=== PATIENT | female | born 1995 | race Hispanic/Latino ===

== ENCOUNTER 2022-07-27 14:14 | Emergency (ER) | payer OTHER ==
[2022-07-27 14:52] LABS: Pregnancy Test - Urine (BHCG) POSITIVE (Negative); Pregu Control Background? CLEAR/WHITE (CLR/WHITE); Pregu Control Bar Appear? YES (CONTROL BAR)
== END 2022-07-27 15:00 | disposition home or self-care (01) ==
LOC: CSHERS 14:14
DX: O21.9 Vomiting of pregnancy, unspecified (principal); O99.519 Diseases of the respiratory system complicating pregnancy, unspecified trimester; J45.909 Unspecified asthma, uncomplicated; O10.919 Unspecified pre-existing hypertension complicating pregnancy, unspecified trimester; O24.119 Pre-existing type 2 diabetes mellitus, in pregnancy, unspecified trimester; O99.330 Smoking (tobacco) complicating pregnancy, unspecified trimester; F17.210 Nicotine dependence, cigarettes, uncomplicated; Z3A.00 Weeks of gestation of pregnancy not specified
CPT/HCPCS: 81025; 99284

== ENCOUNTER 2022-11-10 18:46 | Inpatient (IN) | payer OTHER ==
[2022-11-10 19:52] LABS: Fetal Membranes Rupture RUPTURE DETECTED (No Rupture)
[2022-11-10] MEDS ORDERED: hydrALAZINE 20 MG/ML VIAL SLOW IVP PRN ×3 (19:59→21:13)
[2022-11-10 20:09] VITALS: BMI 41.1
[2022-11-10] MEDS ORDERED: Butorphanol Tartrate 1 MG/ML VIAL SLOW IVP PRN (20:11)
[2022-11-10] MEDS ORDERED: Carboprost 250 MCG/ML AMP IM PRN (20:11)
[2022-11-10] MEDS ORDERED: Ondansetron PF 4 MG/2 ML Vial IVP PRN (20:11)
[2022-11-10] MEDS ORDERED: Tranexamic Acid 1,000 MG/10 ML VIAL IVP PRN (20:11)
[2022-11-10] MEDS ORDERED: Docusate 100 MG CAP PO PRN (20:11)
[2022-11-10] MEDS ORDERED: Diphenoxylate HCl/Atropine Tablet PO PRN (20:11)
[2022-11-10] MEDS ORDERED: Misoprostol 200 MCG TAB PR PRN (20:11)
[2022-11-10] MEDS ORDERED: NS w/ Oxytocin 30 units 500 ML IV SCH (20:15)
[2022-11-10 20:21] LABS: FFN Internal QC Analyzer PASS (PASS); FFN Internal QC Cassette PASS (PASS); Fetal Fibronectin POSITIVE (Negative)
[2022-11-10] MEDS ORDERED: Calcium Gluc 4.6 MEQ/10 ML (100 MG/ML) SLOW IVP PRN ×2 (20:26→20:28)
[2022-11-10] MEDS ORDERED: Lorazepam 2 MG/ML VIAL SLOW IVP PRN (20:28)
[2022-11-10] MEDS ORDERED: Azithromycin 250 MG TAB PO SCH (20:30)
[2022-11-10] MEDS ORDERED: Dextrose 5% in Water 1,000 ML IV PRN (21:10)
[2022-11-10] MEDS ORDERED: Dextrose 50% Abboject 50 ML SYRINGE SLOW IVP PRN (21:10)
[2022-11-10] MEDS ORDERED: Milk Of Magnesia 30 ML UDCUP PO PRN (21:13)
[2022-11-10] MEDS ORDERED: Boostrix 0.5 ML (Tdap) VIAL (>/=7 yrs of age) IM ONE (21:13)
[2022-11-10] MEDS ORDERED: Bisacodyl 10 MG SUPP PR PRN (21:13)
[2022-11-10] MEDS ORDERED: Magnesium Sulfate 20 GM/WATER 500 ML BAG IVPB SCH (21:15)
[2022-11-10] MEDS ORDERED: Magnesium Sulfate 20 gm/500 ml 20 GM/500 ML BAG ONE (21:23)
[2022-11-10 21:25] LABS: #Eosinphils 0.1 10x3/uL (0.0-0.5); #Monocytes 0.7 10x3/uL (0.0-1.1); #Neutrophils 11.5 10x3/uL (1.5-8.4); %Basophils 0.2 % (0.0-2.0); %Eosinophils 0.6 % (0.0-6.0); %Lymphocytes 21.4 % (18.0-47.0); %Monocytes 4.2 % (0.0-10.0); %Neutrophils 73.1 % (40.0-75.0); Hemoglobin 11.7 g/dL (12.0-15.5); Mean Corpuscular HGB CONC 33.8 g/dL (32.0-36.0); Mean Corpuscular Hemoglobin 27.8 pg (27.0-33.0); Mean Corpuscular Volume 82.2 fl (81.6-98.3); Mean Platelet Volume 10.2 fl (7.4-10.4); Platelet Count 343 10x3/uL (150-450); RBC Distribution Width 12.6 % (11.5-14.5); Red Blood Cell (RBC) Count 4.21 10x6/uL (3.90-5.03); White Blood Cell (WBC) Count 15.7 10x3/uL (3.5-10.5)
[2022-11-10] MEDS ORDERED: Lantus 1000 UNITS/10 ML VIAL SC SCH (21:30)
[2022-11-10 21:35] LABS: ALT (SGPT) 6 U/L (8-55); AST (SGOT) 8 U/L (5-34); Alkaline Phosphatase 141 U/L (40-110); Anion Gap 14 mmol/L (10-20); BUN (Urea Nitrogen) 7 mg/dL (7.0-18.7); Bilirubin, Total 0.3 mg/dL (0.2-1.2); Calc. Creatinine Clearance 229 mL/min (70-130); Calcium 8.6 mg/dL (7.8-10.44); Carbon Dioxide 22 mmol/L (22-29); Chloride 103 mmol/L (98-107); Estimated GFR 122; Globulin 3.3 g/dL (2.4-3.5); Glucose 142 mg/dL (70-105); Potassium 3.7 mmol/L (3.5-5.1); Protein, Total 6.3 g/dL (6.0-8.3); Sodium 135 mmol/L (136-145)
[2022-11-10] MEDS: Betamet Acet/Betamet Na Ph 30 MG/5 ML VIAL IM SCH (21:38)
[2022-11-10] MEDS: Lactated Ringer's 1,000 ML IV SCH (21:38)
[2022-11-10 21:57] LABS: HBSAg Index 0.12 S/CO (0-0.99); Hep B Surf Ag - L&D Non-Reactive S/CO (NonReactive); Syphilis Antibody Nonreactive (Nonreactive); Syphilis Antibody Index 0.04 S/CO (<1.00 Non-Reactive)
[2022-11-10 23:39] LABS: Bilirubin Neg (Negative); Blood, Urine Negative (Negative); Clarity Slightly Cloudy (Clear); Glucose, Urine (Dipstick) Normal (Negative); Ketone, Urine 15 mg/dL (Negative); Leukocyte Negative (Negative); Nitrite Negative (Negative); Protein, Urine (Dipstick) Negative (Neg-Trace); Urobilinogen Normal mg/dL (Less than 2)
[2022-11-10 23:56] LABS: RBC/HPF None Seen HPF (0-3); Squamous Epithelial 0-3 HPF (0-3); WBC/HPF None Seen HPF (0-3)
[2022-11-10 23:57] LABS: Bacteria/HPF None Seen HPF (None Seen)
[2022-11-11] MEDS ORDERED: Indomethacin 25 mg Capsule PO PRN (00:04)
[2022-11-11] MEDS ORDERED: Indomethacin 25 mg Capsule PO SCH (00:15)
[2022-11-11] MEDS: Ampicillin 2 GM in Sodium Chloride 0.9% 100 ML IVPB SCH ×4 (00:21→17:52)
[2022-11-11 00:52] LABS: INR-International Normal Ratio 0.9; PTT 27.7 sec (22.0-33.0)
[2022-11-11] MEDS: HumaLOG 300 UNITS/3 ML VIAL SC PRN ×5 (01:17→12:45)
[2022-11-11 04:08] LABS: #Monocytes 0.2 10x3/uL (0.0-1.1); #Neutrophils 13.9 10x3/uL (1.5-8.4); %Basophils 0.2 % (0.0-2.0); %Eosinophils 0.1 % (0.0-6.0); %Lymphocytes 11.6 % (18.0-47.0); %Monocytes 1.2 % (0.0-10.0); %Neutrophils 86.5 % (40.0-75.0); Hemoglobin 11.6 g/dL (12.0-15.5); Mean Corpuscular HGB CONC 32.6 g/dL (32.0-36.0); Mean Platelet Volume 10.3 fl (7.4-10.4); Platelet Count 358 10x3/uL (150-450); RBC Distribution Width 12.6 % (11.5-14.5); Red Blood Cell (RBC) Count 4.29 10x6/uL (3.90-5.03); White Blood Cell (WBC) Count 16.1 10x3/uL (3.5-10.5)
[2022-11-11 04:14] LABS: ALT (SGPT) 6 U/L (8-55); AST (SGOT) 9 U/L (5-34); Albumin 2.9 g/dL (3.5-5.0); Alkaline Phosphatase 144 U/L (40-110); Anion Gap 15 mmol/L (10-20); BUN (Urea Nitrogen) 6 mg/dL (7.0-18.7); Bilirubin, Total 0.3 mg/dL (0.2-1.2); Calc. Creatinine Clearance 243 mL/min (70-130); Carbon Dioxide 17 mmol/L (22-29); Chloride 102 mmol/L (98-107); Estimated GFR 124; Globulin 3.3 g/dL (2.4-3.5); Glucose 243 mg/dL (70-105); Potassium 4.1 mmol/L (3.5-5.1); Protein, Total 6.2 g/dL (6.0-8.3); Sodium 130 mmol/L (136-145)
[2022-11-11] MEDS: Magnesium Sulfate 20 gm/500 ml 20 GM/500 ML BAG IVPB SCH ×2 (05:51→16:23)
[2022-11-11] MEDS: Acetaminophen 500 MG TAB PO PRN ×2 (06:35→14:46)
[2022-11-11] MEDS ORDERED: Ferrous Sulfate 325 MG TAB PO SCH (08:00)
[2022-11-11] MEDS ORDERED: Docusate 100 MG CAP PO SCH (09:00)
[2022-11-11 15:56] LABS: Chlamydia by PCR, Vaginal Swab Not Detected (NotDetected); GC by PCR, Vaginal Swab Not Detected (NotDetected); Tric.vaginalis PCR,Vaginal Sw Not Detected (NotDetected)
[2022-11-11] MEDS: Betamet Acet/Betamet Na Ph 30 MG/5 ML VIAL IM SCH (17:40)
[2022-11-11] MEDS: Lantus 1000 UNITS/10 ML VIAL SC SCH (19:49)
[2022-11-11] MEDS ORDERED: Lantus 1000 UNITS/10 ML VIAL SC SCH (20:15)
[2022-11-12] MEDS: Ampicillin 2 GM in Sodium Chloride 0.9% 100 ML IVPB SCH ×4 (00:44→18:20)
[2022-11-12] MEDS: Lactated Ringer's 1,000 ML IV SCH (00:44)
[2022-11-12] MEDS: HumaLOG 300 UNITS/3 ML VIAL SC PRN ×5 (00:45→23:12)
[2022-11-12] MEDS: HumaLOG 300 UNITS/3 ML VIAL SC SCH ×2 (01:23→08:49)
[2022-11-12 04:00] LABS: Magnesium 5.2 mg/dL (1.6-2.6)
[2022-11-12] MEDS: Acetaminophen 500 MG TAB PO PRN ×2 (07:25→14:26)
[2022-11-12] MEDS ORDERED: HumaLOG 300 UNITS/3 ML VIAL SC SCH ×2 (08:50→12:00)
[2022-11-12] MEDS: Magnesium Sulfate 20 gm/500 ml 20 GM/500 ML BAG IVPB SCH (14:53)
[2022-11-12] MEDS: Lantus 1000 UNITS/10 ML VIAL SC SCH (21:41)
[2022-11-13] MEDS: Ampicillin 2 GM in Sodium Chloride 0.9% 100 ML IVPB SCH ×2 (01:02→18:12)
[2022-11-13] MEDS: Magnesium Sulfate 20 gm/500 ml 20 GM/500 ML BAG IVPB SCH (01:03)
[2022-11-13] MEDS ORDERED: HumaLOG 300 UNITS/3 ML VIAL SC SCH (01:30)
[2022-11-13] MEDS: HumaLOG 300 UNITS/3 ML VIAL SC PRN (03:15)
[2022-11-13] MEDS ORDERED: Azithromycin 500 MG VIAL ONE (03:25)
[2022-11-13] MEDS ORDERED: CEFAZOLIN 2 GM VIAL ONE (03:25)
[2022-11-13] MEDS ORDERED: Fentanyl 100 MCG/2 ML VIAL ONE ×4 (03:55→05:09)
[2022-11-13] MEDS ORDERED: Oxytocin 10 UNITS/ML VIAL ONE ×2 (04:10→08:00)
[2022-11-13 04:11] LABS: RapidComm Collect By CBN
[2022-11-13 04:13] LABS: RapidComm Collect By CBN
[2022-11-13] MEDS ORDERED: Meperidine HCl/PF 25 MG/ML VIAL SLOW IVP PRN (04:43)
[2022-11-13] MEDS ORDERED: Fentanyl 100 MCG/2 ML VIAL SLOW IVP PRN (04:43)
[2022-11-13] MEDS ORDERED: HYDROmorphone 2 MG/ML VIAL SLOW IVP PRN ×2 (04:43→04:44)
[2022-11-13] MEDS ORDERED: Ondansetron HCl/PF 4 MG/2 ML Vial IVP PRN ×2 (04:43→04:44)
[2022-11-13] MEDS ORDERED: Promethazine HCl 25 MG/ML VIAL IM PRN ×3 (04:44→15:37)
[2022-11-13] MEDS ORDERED: Ketorolac Tromethamine 30 MG/ML VIAL IVP SCH (04:45)
[2022-11-13] MEDS ORDERED: diphenhydrAMINE 50 MG/ML VIAL IVP PRN (05:04)
[2022-11-13] MEDS ORDERED: Naloxone HCl 0.4 mg/ml Vial IV PRN (05:04)
[2022-11-13] MEDS ORDERED: FENTANYL 500 MCG/10 ML VIAL 2,000 MCG in Sodium Chloride 0.9% 60 ML IV PRN (05:04)
[2022-11-13] MEDS ORDERED: Zolpidem Tartrate 5 MG TAB PO PRN (05:04)
[2022-11-13] MEDS ORDERED: diphenhydrAMINE 50 MG/ML VIAL IM PRN (05:04)
[2022-11-13] MEDS ORDERED: Ondansetron PF 4 MG/2 ML Vial IVP PRN ×2 (05:04→15:37)
[2022-11-13] MEDS ORDERED: diphenhydrAMINE 25 MG CAP PO PRN ×2 (05:04→15:37)
[2022-11-13] MEDS ORDERED: HYDROmorphone 0.5 MG/0.5 ML SYRINGE SLOW IVP PRN (05:08)
[2022-11-13] MEDS ORDERED: Meperidine HCl/PF 25 MG/ML VIAL ONE (05:10)
[2022-11-13] MEDS: metroNIDAZOLE 500 MG in Premix Bag 1 BAG IVPB SCH ×3 (05:14→21:45)
[2022-11-13] MEDS ORDERED: FENTANYL 500 MCG/10 ML VIAL 1,000 MCG in Sodium Chloride 0.9% 30 ML IV PRN (05:15)
[2022-11-13] MEDS ORDERED: Communication Order-Pharmacy FS SCH (05:15)
[2022-11-13] MEDS ORDERED: Methylergonovine 0.2 MG/ML VIAL ONE (05:45)
[2022-11-13] MEDS ORDERED: Carboprost 250 MCG/ML AMP ONE (05:50)
[2022-11-13 06:03] LABS: Hemoglobin 10.3 g/dL (12.0-15.5); Mean Corpuscular HGB CONC 32.4 g/dL (32.0-36.0); Mean Corpuscular Volume 83.5 fl (81.6-98.3); Mean Platelet Volume 9.9 fl (7.4-10.4); Platelet Count 354 10x3/uL (150-450); RBC Distribution Width 13.8 % (11.5-14.5); Red Blood Cell (RBC) Count 3.81 10x6/uL (3.90-5.03); White Blood Cell (WBC) Count 19.2 10x3/uL (3.5-10.5)
[2022-11-13 06:12] LABS: D-Dimer Test 3.91 mg/L FEU (0.19-0.50); INR-International Normal Ratio 0.9; PTT 27.1 sec (22.0-33.0); Prothrombin Time 9.8 sec (9.5-12.1)
[2022-11-13] MEDS ORDERED: Diphenoxylate HCl/Atropine Tablet PO SCH (07:00)
[2022-11-13] MEDS ORDERED: Succinylcholine 200 MG/10 ml SYRINGE FS ONE (08:00)
[2022-11-13 12:41] LABS: Hemoglobin 9.3 g/dL (12.0-15.5); Mean Corpuscular HGB CONC 33.5 g/dL (32.0-36.0); Mean Corpuscular Hemoglobin 27.6 pg (27.0-33.0); Mean Corpuscular Volume 82.5 fl (81.6-98.3); Mean Platelet Volume 10.5 fl (7.4-10.4); Platelet Count 261 10x3/uL (150-450); RBC Distribution Width 14.3 % (11.5-14.5); Red Blood Cell (RBC) Count 3.37 10x6/uL (3.90-5.03); White Blood Cell (WBC) Count 17.4 10x3/uL (3.5-10.5)
[2022-11-13] MEDS: CEFAZOLIN 2 GM in Sodium Chloride 0.9% 100 ML IVPB SCH ×2 (14:48→21:45)
[2022-11-13] MEDS ORDERED: Docusate 100 MG CAP PO SCH ×2 (15:37→16:00)
[2022-11-13] MEDS ORDERED: HYDROcodone/Acetaminophen 5/325 mg Tablet PO PRN (15:37)
[2022-11-13] MEDS ORDERED: Meperidine HCl/PF 25 MG/ML VIAL IM PRN (15:37)
[2022-11-13] MEDS ORDERED: Boostrix 0.5 ML (Tdap) VIAL (>/=7 yrs of age) IM ONE (15:37)
[2022-11-13] MEDS ORDERED: Bisacodyl 10 MG SUPP PR PRN (15:37)
[2022-11-13] MEDS ORDERED: Lanolin Ointment 7 GM TUBE TOP PRN (15:37)
[2022-11-13] MEDS ORDERED: hydrALAZINE 20 MG/ML VIAL SLOW IVP PRN (15:37)
[2022-11-13] MEDS ORDERED: NS w/ Oxytocin 30 units 500 ML IV SCH (15:37)
[2022-11-13] MEDS ORDERED: Ferrous Sulfate 325 MG TAB PO SCH (16:00)
[2022-11-13] MEDS ORDERED: Dextrose 50% Abboject 50 ML SYRINGE SLOW IVP PRN (16:24)
[2022-11-13] MEDS ORDERED: Dextrose 5% in Water 1,000 ML IV PRN (16:24)
[2022-11-13] MEDS: Ketorolac Tromethamine 30 MG/ML VIAL IVP SCH (16:34)
[2022-11-13] MEDS: Prenatal Vitamin 1 TAB PO SCH (16:43)
[2022-11-13] MEDS: metFORMIN 500 MG TAB PO SCH (17:16)
[2022-11-13] MEDS: Betamet Acet/Betamet Na Ph 30 MG/5 ML VIAL IM SCH (18:11)
[2022-11-13] MEDS: Simethicone Chewable 80 MG TAB PO PRN (21:45)
[2022-11-13] MEDS: HYDROcodone/Acetaminophen 5/325 mg Tablet PO PRN (21:46)
[2022-11-13] MEDS: Docusate 100 MG CAP PO SCH (21:46)
[2022-11-13] MEDS: Ferrous Sulfate 325 MG TAB PO SCH (21:46)
[2022-11-13] MEDS: Lantus 1000 UNITS/10 ML VIAL SC SCH (21:47)
[2022-11-14] MEDS: Ketorolac Tromethamine 30 MG/ML VIAL IVP SCH (00:33)
[2022-11-14] MEDS: metroNIDAZOLE 500 MG in Premix Bag 1 BAG IVPB SCH ×3 (05:25→22:26)
[2022-11-14] MEDS: CEFAZOLIN 2 GM in Sodium Chloride 0.9% 100 ML IVPB SCH ×3 (05:25→21:14)
[2022-11-14] MEDS: Simethicone Chewable 80 MG TAB PO PRN ×4 (05:25→17:50)
[2022-11-14] MEDS: HYDROcodone/Acetaminophen 5/325 mg Tablet PO PRN ×4 (05:26→17:50)
[2022-11-14] MEDS ORDERED: Ketorolac Tromethamine 30 MG/ML VIAL IVP SCH (06:30)
[2022-11-14 08:02] LABS: Hemoglobin 8.3 g/dL (12.0-15.5); Mean Corpuscular HGB CONC 33.2 g/dL (32.0-36.0); Mean Corpuscular Hemoglobin 27.7 pg (27.0-33.0); Mean Corpuscular Volume 83.3 fl (81.6-98.3); Mean Platelet Volume 9.9 fl (7.4-10.4); Platelet Count 242 10x3/uL (150-450); RBC Distribution Width 15.1 % (11.5-14.5); White Blood Cell (WBC) Count 10.1 10x3/uL (3.5-10.5)
[2022-11-14] MEDS: Ferrous Sulfate 325 MG TAB PO SCH ×2 (08:07→21:24)
[2022-11-14] MEDS: metFORMIN 500 MG TAB PO SCH ×2 (08:07→16:20)
[2022-11-14] MEDS: Prenatal Vitamin 1 TAB PO SCH (08:08)
[2022-11-14] MEDS: Docusate 100 MG CAP PO SCH ×2 (08:08→21:24)
[2022-11-14] MEDS: HumaLOG 300 UNITS/3 ML VIAL SC PRN (11:57)
[2022-11-14] MEDS: Ibuprofen 800 MG TAB PO SCH ×2 (13:37→21:24)
[2022-11-14] MEDS: Lantus 1000 UNITS/10 ML VIAL SC SCH (21:25)
[2022-11-15] MEDS: CEFAZOLIN 2 GM in Sodium Chloride 0.9% 100 ML IVPB SCH ×2 (05:39→13:22)
[2022-11-15] MEDS: Ibuprofen 800 MG TAB PO SCH ×3 (05:41→21:08)
[2022-11-15] MEDS: metroNIDAZOLE 500 MG in Premix Bag 1 BAG IVPB SCH ×2 (05:51→13:21)
[2022-11-15] MEDS: HYDROcodone/Acetaminophen 5/325 mg Tablet PO PRN ×2 (08:16→19:25)
[2022-11-15] MEDS: Docusate 100 MG CAP PO SCH ×2 (08:16→21:08)
[2022-11-15] MEDS: Ferrous Sulfate 325 MG TAB PO SCH ×2 (08:16→21:08)
[2022-11-15] MEDS: metFORMIN 500 MG TAB PO SCH ×2 (08:16→18:01)
[2022-11-15 08:19] LABS: Hemoglobin 9.4 g/dL (12.0-15.5); Mean Corpuscular HGB CONC 33.3 g/dL (32.0-36.0); Mean Corpuscular Hemoglobin 27.8 pg (27.0-33.0); Mean Corpuscular Volume 83.4 fl (81.6-98.3); Mean Platelet Volume 10.4 fl (7.4-10.4); Platelet Count 298 10x3/uL (150-450); RBC Distribution Width 14.7 % (11.5-14.5); Red Blood Cell (RBC) Count 3.38 10x6/uL (3.90-5.03); White Blood Cell (WBC) Count 11.4 10x3/uL (3.5-10.5)
[2022-11-15] MEDS: Prenatal Vitamin 1 TAB PO SCH (18:00)
[2022-11-15] MEDS: Cephalexin 500 MG CAP PO SCH (21:08)
[2022-11-15] MEDS: metroNIDAZOLE 500 MG TAB PO SCH (21:08)
[2022-11-15] MEDS: Lantus 1000 UNITS/10 ML VIAL SC SCH (21:09)
[2022-11-16] MEDS: Ibuprofen 800 MG TAB PO SCH ×2 (05:32→13:59)
[2022-11-16] MEDS: HumaLOG 300 UNITS/3 ML VIAL SC PRN ×2 (05:41→12:21)
[2022-11-16 07:51] VITALS: TEMP 98.4
[2022-11-16] MEDS: Cephalexin 500 MG CAP PO SCH ×2 (08:50→13:59)
[2022-11-16] MEDS: Docusate 100 MG CAP PO SCH (08:50)
[2022-11-16] MEDS: metroNIDAZOLE 500 MG TAB PO SCH (08:50)
[2022-11-16] MEDS: metFORMIN 500 MG TAB PO SCH (08:50)
[2022-11-16] MEDS: Ferrous Sulfate 325 MG TAB PO SCH (08:50)
[2022-11-16] MEDS: Prenatal Vitamin 1 TAB PO SCH (08:51)
[2022-11-16] MEDS: HYDROcodone/Acetaminophen 5/325 mg Tablet PO PRN (12:25)
[2022-11-16 12:28] VITALS: BP 145/70
== END 2022-11-16 14:45 | disposition home or self-care (01) | DRG 786 ==
LOC: CSHLD/OP 18:46 → CSHLD 20:13 → CSHPP 11-13 15:25
PROVIDERS: ADMIT Family Medicine; ATTEND Family Medicine
PROC: 10D00Z1 Extraction of Products of Conception, Low, Open Approach (ICD-10-PCS; principal; 2022-11-13)
PROC: 30233N1 Transfusion of Nonautologous Red Blood Cells into Peripheral Vein, Percutaneous Approach (ICD-10-PCS; 2022-11-13)
PROC: 4A033R1 Measurement of Arterial Saturation, Peripheral, Percutaneous Approach (ICD-10-PCS; 2022-11-13)
PROC: 30233K1 Transfusion of Nonautologous Frozen Plasma into Peripheral Vein, Percutaneous Approach (ICD-10-PCS; 2022-11-13)
DX: O42.113 Preterm premature rupture of membranes, onset of labor more than 24 hours following rupture, third trimester (principal); O24.12 Pre-existing type 2 diabetes mellitus, in childbirth; O72.1 Other immediate postpartum hemorrhage; Z3A.30 30 weeks gestation of pregnancy; Z37.0 Single live birth; E11.9 Type 2 diabetes mellitus without complications; Z79.4 Long term (current) use of insulin; Z91.018 Allergy to other foods; Z91.013 Allergy to seafood; O34.211 Maternal care for low transverse scar from previous cesarean delivery; J45.909 Unspecified asthma, uncomplicated; O99.52 Diseases of the respiratory system complicating childbirth; Z90.49 Acquired absence of other specified parts of digestive tract; Z82.49 Family history of ischemic heart disease and other diseases of the circulatory system; Z83.3 Family history of diabetes mellitus; O32.1XX0 Maternal care for breech presentation, not applicable or unspecified
CPT/HCPCS: 36415; 36416; 36430; 51702; 76815; 80053; 81001; 82731; 82805; 83735; 84112; 85025; 85027; 85049; 85300; 85362; 85379; 85384; 85610; 85730; 86780; 86850; 86900; 86901; 87340; 87491; 87591; 87661; 88307; 99285; J0290; J0702; J1815; J1885; J2175; J2405; J2590; J3010; J3475; J3490; J7120; P9016; P9059

== ENCOUNTER 2023-08-23 14:01 | Emergency (ER) | payer OTHER, SELFPAY ==
[2023-08-23] MEDS ORDERED: Lidocaine 1% w/Epinephrine 1:200K 30 ML VIAL ONE (14:38)
[2023-08-23 15:31] LABS: Pregnancy Test - Urine (BHCG) Negative (Negative); Pregu Control Background? CLEAR/WHITE (CLR/WHITE); Pregu Control Bar Appear? YES (CONTROL BAR)
== END 2023-08-23 15:38 | disposition home or self-care (01) ==
LOC: CSHERS 14:01
DX: L02.412 Cutaneous abscess of left axilla (principal); F17.210 Nicotine dependence, cigarettes, uncomplicated; I10 Essential (primary) hypertension; E11.9 Type 2 diabetes mellitus without complications
CPT/HCPCS: 10060; 81025

== ENCOUNTER 2025-01-26 14:27 | Emergency (ER) | payer SELFPAY ==
[2025-01-26 17:31] LABS: Glucose, Urine (Dipstick) >=1000 mg/dL (Negative); Leukocyte Negative (Negative); Protein, Urine (Dipstick) 15 mg/dl (Neg-Trace); Specific Gravity, Urine 1.020 (1.005-1.030)
[2025-01-26 17:48] LABS: Bacteria/HPF 1+ HPF (None Seen); CAUTI Indications for Culture Dysuria,urgency,freq; Mucous/LPF 1+ LPF (<2+); RBC/HPF None Seen HPF (0-3); Urine Culture Reflex No No; WBC/HPF 0-3 HPF (0-3)
[2025-01-27 05:57] LABS: Chlam.trachomatis by PCR,Urine Not Detected (NotDetected); GC N.gonorrhoeae PCR,UrineVOID Not Detected (NotDetected)
== END 2025-01-26 17:09 | disposition home or self-care (01) ==
LOC: CSHERS 14:27
DX: O99.891 Other specified diseases and conditions complicating pregnancy (principal); R10.32 Left lower quadrant pain; O24.111 Pre-existing type 2 diabetes mellitus, in pregnancy, first trimester; O10.911 Unspecified pre-existing hypertension complicating pregnancy, first trimester; O99.331 Smoking (tobacco) complicating pregnancy, first trimester; F17.210 Nicotine dependence, cigarettes, uncomplicated; Z3A.01 Less than 8 weeks gestation of pregnancy
CPT/HCPCS: 36415; 76856; 81001; 84702; 86900; 86901; 87491; 87591